=== PATIENT | male | born 1955 | race Two or more races ===

== ENCOUNTER → 2020-03-06 | Day surgery (SDC) | payer OTHER ==
[~2020-03-06] MED LIST: ADVIL200 M1 PO; ASPIR 8181 MG PO; BETAMETHASONE D15 G5; LOTRIMIN AF12 GM; MULTI VITAMIN1 EACH PO; ZESTRIL20 MG PO; ZYLOPRIM300 MG PO
== END | disposition home or self-care (01) ==
LOC: ADM 03-02 11:15 → CIR.AMB 06:48
PROVIDERS: ATTEND Orthopaedic Surgery Hand Surgery
DX: M19.031 Primary osteoarthritis, right wrist (principal); Z20.828 Contact with and (suspected) exposure to other viral communicable diseases
CPT/HCPCS: 25210; 25825; 64782; C1776